=== PATIENT | female | born 1990 | race American Indian/Alaskan Native ===

== ENCOUNTER 2017-09-22 10:30 | Outpatient (CLI) | payer OTHER, MEDICAID ==
[2017-09-22 11:13] LABS: Bacteria,Urine 1+ /HPF (Negative); Bilirubin,Urine NEG (Negative); Blood,Urine NEG (Negative); Color,Urine Yellow (Yellow); Mucus,Urine FEW /HPF; Protein,Urine <15 mg/dL mg/dL (Negative)
[2017-09-22 11:28] VITALS: BP 111/68
--- NOTE | 2017-09-22 15:48 | Ultrasound Report ---
OB ULTRASOUND GREATER THAN 14 WEEKS - TWINS INDICATION: Status post fall. Evaluate placenta, SANGEETHA. Twin . COMPARISON: None similar during this gestation. TECHNIQUE: Transabdominal grayscale ultrasound with Doppler interrogation. BABY A: Gestation: Twin A Position: Cephalic Amniotic Fluid: Twin - Largest vertical pocket 3.5 cm (2-8 cm Normal) Placenta: Anterior; no evidence of abruption Placental Grade: 0 Heart Rate: 146 BPM Cervical length: 3.7 cm (Normal > 3 cm) BPD: 6.1 cm = 24 w 6 d HC: 22.3 cm = 24 w 3 d AC: 18.9 cm = 23 w 5 d FL: 4.5 cm = 24 w 5 d HC/AC Ratio: 1.2 Cephalic Index: 86.4 Estimated Weight: 670 grams LMP: 03/28/2017 Clinical age = 25 w 3 d EDC: 01/02/2018 US Gest. Age = 24 w 3 d EDC: BABY B: Gestation: Twin B Position: Cephalic Amniotic Fluid: Twin - Largest vertical pocket 4 cm (2-8 cm Normal) Placenta: Posterior, fundal, left lateral; no evidence of abruption Placental Grade: 0 Heart Rate: 149 BPM Cervical length: 3.7 cm (Normal > 3 cm) BPD: 5.9 cm = 24 w 1 d HC: 23 cm = 25 w 0 d AC: 19 cm = 23 w 5 d FL: 4.6 cm = 25 w 1 d HC/AC Ratio: 1.21 Cephalic Index: 74.1 Estimated Weight: 693 grams LMP: 03/28/2017 Clinical age = 25 w 3 d EDC: 01/02/2018 US Gest. Age = 24 w 4 d EDC: 01/08/2018 CONCLUSION: Twin, viable intrauterine gestations with details, as above. Thank you for the opportunity to participate in this patient's care.
== END 2017-09-22 12:57 | disposition home or self-care (01) ==
LOC: TRG 10:30
PROVIDERS: ATTEND Obstetrics & Gynecology
DX: O30.002 Twin pregnancy, unspecified number of placenta and unspecified number of amniotic sacs, second trimester (principal); O47.02 False labor before 37 completed weeks of gestation, second trimester; Z3A.25 25 weeks gestation of pregnancy; Z91.81 History of falling
CPT/HCPCS: 59025; 76816; 81001